=== PATIENT | male | born 1950 | race Caucasian/White ===

== ENCOUNTER 2020-03-30 21:45 | Inpatient (IN) | payer MEDICARE, SELFPAY ==
[2020-03-30 21:57] VITALS: BP 115/81; BP 125/60; PULSE 62; PULSE 76; RESP 18; TEMP 36.3; O2SAT 100; O2SAT 99; BMI 29.1
[2020-03-30 22:09] VITALS: BP 125/60; PULSE 62; RESP 16; TEMP 37.1; O2SAT 100
--- NOTE | 2020-03-30 22:13 | XR_ITS ---
EXAMINATION: XR CHEST CLINICAL INFORMATION: Shortness of breath COMPARISON: None TECHNIQUE: Frontal view of the chest was obtained. FINDINGS: No significant abnormality is noted involving the heart, lungs, mediastinum, bony thorax or soft tissues. XR/XR chest 1V IMPRESSION: Unremarkable examination.
--- NOTE | 2020-03-30 22:17 | ED.SOB ---
HPI - SOB/Dyspnea General Chief Complaint: Dyspnea Stated Complaint: sob Time Seen by Provider: 03/30/20 22:11 Source: patient and EMS Mode of arrival: EMS Limitations: no limitations History of Present Illness HPI Narrative: 70 y/o male presenting with SOB on POD #5 after having his left hip replaced at [facility]. 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 He reports he was later found to have a clot at the insertion site. He is not on anticoagulation. He was on anticoagulation for 30 days and then the IVC filter was placed. He reports since his surgery last week he has been very SOB with little exertion. He denies dizziness or chest pain. He denies fever, chills, cough, N/V/D. He admits to generalized weakness and fatigue. Prior to the surgery patient was an swimming and biking several times per week and had no SOB issues. Postoperatively he had urinary retention and now has a Chung in place. He was discharged with SQ PPX lovenox as well as Coumadin that started on 03/29 - he took 3 mg yesterday. INR per visiting nurse at home was 1.0 so he was instructed to take 4 mg today and tomorrow. MD elicited complaint: shortness of breath Pertinent past history: DVT Onset (ago): day(s) (3) Context: other (recent hip replacement) Timing: intermittent Severity: moderate Exacerbating factors: exertion and movement Relieving factors: rest Known history of: DVT Treatment prior to arrival: none Related Data Home oxygen amount: none Allergies Allergy/AdvReac Type Severity Reaction Status Date / Time Unable to Assess Allergy Unverified 03/30/20 22:12 Review of Systems Review of Systems: Constitutional: No Fever, No Chills ENT/Mouth: No sore throat, No Rhinorrhea, No Swallowing Difficulty Cardiovascular: No Chest Pain, + SOB, No Orthopnea, + Edema Respiratory: No Cough, No Sputum, No Wheezing, + dyspnea Gastrointestinal: No Nausea, No Vomiting, No Diarrhea, No abdominal Pain Genitourinary: No Dysuria, No Urinary Frequency, No Hematuria, +retention Musculoskeletal: No joint pain, No Myalgias Skin: No Skin Lesions, No rash Neuro: + Weakness, No Numbness, No Dizziness, No Headache Psych: + Anxiety/Panic, No Depression Heme/Lymph: + Bruising, No Lymphadenopathy Endocrine: No Polyuria, No Polydipsia PMFSH Past Medical History Medical History (Updated 03/31/20 @ 00:50 by LISSY Meade) Aortic aneurysm Blood clot in vein High cholesterol Hypertension Presence of IVC filter Surgical History (Updated 03/30/20 @ 22:01 by Cecelia Carranza) History of hip surgery Social History Social History Alcohol intake: never Smoking Status: Never smoker Use of substances other than those prescribed or required for medical reasons: No Advance Directives: No Advance Directives Information Provided: Yes Physical Exam Vital Signs: Vital Signs: Last Vital Signs Temp 98.8 F 03/30/20 22:09 Pulse 62 03/30/20 22:09 Resp 16 03/30/20 22:09 BP 125/60 03/30/20 22:09 Pulse Ox 100 03/30/20 22:09 Body Mass Index 29.1 Appearance: Alert. Oriented X3. No acute distress. Eyes: Pupils equal, round and reactive to light. ENT: Pharynx normal. Neck: Normal inspection. Neck supple. CVS: Normal heart rate and rhythm. Pulses normal. Respiratory: No respiratory distress. Mild end expiratory wheeze in RLL. No distress. Abdomen: Soft and nontender. +BS x4 Skin: Skin warm and dry. Normal skin color. Normal skin turgor. No rashes. Extremities: Left hip post surgical scar is healing well without surrouding erythema. No calf tenderness. No distal LE edema. Neuro: Oriented X 3. Non-focal Course Course Course Narrative: 70 y/o male with hx DVT s/p IVC filter presenting with SOB, PIERRE and fatigue POD #5 from hip replacement. Concern for PE, still possible after IVC filter placement. Will get labs and plan for CTA. Reevaluation(s) Reevaluation #1: Troponin mildly elevated at 10, no chest pain or ischemic changes on EKG. BNP normal. Will trend in 3 hours. Reevaluation #2: Received critical result from [facility] at 12:20 am - patient has acute PE's in left lung. Results were discussed with the patient. Hospitalist paged for admission. Reevaluation #3: Spoke with hospitalist who will admit. Heparin has been initiated. MDM - SOB/Dyspnea Medical Records Attestation: I reviewed the patient's medical records. Lab Data Attestation: I reviewed the patient's lab results. Result diagrams: 03/30/20 22:42 03/30/20 22:42 Labs: Lab Results 03/30/20 03/30/20 03/30/20 Range/Units 22:31 22:33 22:42 WBC 7.0 (4.8-10.8) X10*3/uL RBC 3.24 L (4.60-5.80) X10*6/uL Hgb 10.2 L (14.0-18.0) g/dl Hct 30.3 L (42-52) % MCV 93.5 (80-98) fL MCH 31.5 (27.0-33.0) pg MCHC 33.7 (31.0-36.0) g/dl RDW 12.9 (11.0-16.0) % Plt Count 194 (160-400) X10*3/uL MPV 9.3 L (9.4-12.4) fL Immature Gran % (Auto) 0.3 (0.0-0.4) % Neut % (Auto) 55.4 (45-73) % Lymph % (Auto) 27.5 (20-40) % [place] % (Auto) 10.5 (2-11) % Eos % (Auto) 6.0 H (0-4) % Baso % (Auto) 0.3 (0-2) % Lymph # (Auto) 1.9 (1.2-4.9) X10*3/uL [place] # (Auto) 0.7 (0.1-1.2) X10*3/uL Eos # (Auto) 0.4 (0.0-0.4) X10*3/uL Baso # (Auto) 0.0 (0.0-0.2) X10*3/uL Abs Immat Gran (auto) 0.02 (0.00-0.03) X10*3/uL Absolute Neuts (auto) 3.9 (2.0-8.3) X10*3/uL Absolute Nucleated RBC 0.000 (0.0-0.012) X10*3/uL Nucleated RBC % (auto) 0.0 (0.0-0.2) /100WBC PT (10.8-13.0) SEC INR (0.9-1.1) APTT (24.1-38.0) SEC D-Dimer NG/ML Sodium (135-145) mmol/L Potassium (3.3-5.1) mmol/L Chloride (96-108) mmol/L Carbon Dioxide (22-29) mmol/L Anion Gap (12-20) BUN (9-16) mg/dL Creatinine (0.5-1.4) mg/dL Estim Creat Clear Calc Estimated GFR Random Glucose (60-115) mg/dL Calcium (8.4-10.2) mg/dL Magnesium (1.6-2.6) mg/dL Total Bilirubin (0.0-1.0) mg/dL Direct Bilirubin (0.0-0.5) mg/dL AST (5-37) U/L ALT (0-40) U/L Alkaline Phosphatase (39-117) U/L Troponin I High Sens (<3.5-35.0) ng/L B-Natriuretic Peptide (<100) pg/mL Total Protein (6.5-8.0) g/dL Albumin (3.5-5.0) g/dL Urine Color YELLOW Urine Appearance CLEAR Urine pH 6.5 (5.0-8.0) Ur Specific [place] <= 1.005 (1.005-1.025) Urine Protein NEG (NEG-TRACE) MG/DL Urine Glucose (UA) NEG (NEG) MG/DL Urine Ketones NEG (NEG) MG/DL Urine Blood 3+ H (NEG) Urine Nitrite NEG (NEG) Ur Leukocyte Esterase TRACE H (NEG) Urine RBC 5-9 H (0) /HPF Urine WBC 0-2 (0-4) /HPF Ur Squamous Epith Cells 1+ /LPF Urine Bacteria 1+ /LPF Coronavirus (PCR) NEGATIVE (Negative) Influenza Type A (PCR) NEGATIVE (Negative) Influenza Type B (PCR) NEGATIVE (Negative) RSV RNA Qual (PCR) NEGATIVE (Negative) 03/30/20 03/30/20 03/30/20 Range/Units 22:42 22:42 22:42 WBC (4.8-10.8) X10*3/uL RBC (4.60-5.80) X10*6/uL Hgb (14.0-18.0) g/dl Hct (42-52) % MCV (80-98) fL MCH (27.0-33.0) pg MCHC (31.0-36.0) g/dl RDW (11.0-16.0) % Plt Count (160-400) X10*3/uL MPV (9.4-12.4) fL Immature Gran % (Auto) (0.0-0.4) % Neut % (Auto) (45-73) % Lymph % (Auto) (20-40) % [place] % (Auto) (2-11) % Eos % (Auto) (0-4) % Baso % (Auto) (0-2) % Lymph # (Auto) (1.2-4.9) X10*3/uL [place] # (Auto) (0.1-1.2) X10*3/uL Eos # (Auto) (0.0-0.4) X10*3/uL Baso # (Auto) (0.0-0.2) X10*3/uL Abs Immat Gran (auto) (0.00-0.03) X10*3/uL Absolute Neuts (auto) (2.0-8.3) X10*3/uL Absolute Nucleated RBC (0.0-0.012) X10*3/uL Nucleated RBC % (auto) (0.0-0.2) /100WBC PT 12.6 (10.8-13.0) SEC INR 1.1 (0.9-1.1) APTT 30.5 (24.1-38.0) SEC D-Dimer 955 NG/ML Sodium 137 (135-145) mmol/L Potassium 4.0 (3.3-5.1) mmol/L Chloride 103 (96-108) mmol/L Carbon Dioxide 27 (22-29) mmol/L Anion Gap 11 L (12-20) BUN 18 H (9-16) mg/dL Creatinine 0.83 (0.5-1.4) mg/dL Estim Creat Clear Calc 125.5 Estimated GFR > 60 Random Glucose 102 (60-115) mg/dL Calcium 8.0 L (8.4-10.2) mg/dL Magnesium 2.1 (1.6-2.6) mg/dL Total Bilirubin 1.0 (0.0-1.0) mg/dL Direct Bilirubin 0.4 (0.0-0.5) mg/dL AST 21 (5-37) U/L ALT 10 (0-40) U/L Alkaline Phosphatase 48 (39-117) U/L Troponin I High Sens 10.5 (<3.5-35.0) ng/L B-Natriuretic Peptide 24 (<100) pg/mL Total Protein 6.4 L (6.5-8.0) g/dL Albumin 3.6 (3.5-5.0) g/dL Urine Color Urine Appearance Urine pH (5.0-8.0) Ur Specific [place] (1.005-1.025) Urine Protein (NEG-TRACE) MG/DL Urine Glucose (UA) (NEG) MG/DL Urine Ketones (NEG) MG/DL Urine Blood (NEG) Urine Nitrite (NEG) Ur Leukocyte Esterase (NEG) Urine RBC (0) /HPF Urine WBC (0-4) /HPF Ur Squamous Epith Cells /LPF Urine Bacteria /LPF Coronavirus (PCR) (Negative) Influenza Type A (PCR) (Negative) Influenza Type B (PCR) (Negative) RSV RNA Qual (PCR) (Negative) ECG Data Attestation: I personally reviewed and interpreted this ECG as follows: ECG interpretation date: 03/31/20 ECG interpretation time: 00:48 Interpretation: normal sinus rhythm, HR 61 bpm, normal NM interval, normal QTc, no ST segment depressions or elevations. Scores [place] PE Other diagnosis less likely than PE: 3 Immobilization or surgery within 4 weeks: 1.5 Previous DVT or PE: 1.5 Score: 6.0 2-tier Risk: likely risk (17-53%) 3-tier Risk: high risk (78.4%) Discharge Plan Discharge Clinical Impression: Pulmonary embolism Qualifiers: Pulmonary embolism type: multiple subsegmental (without acute cor pulmonale) Qualified Code(s): I26.94 - Multiple subsegmental pulmonary emboli without acute cor pulmonale Patient Disposition: Admitted As Inpatient
--- NOTE | 2020-03-30 22:38 | CT_ITS ---
EXAMINATION: CT PULMONARY EMBOLISM STUDY CLINICAL INFORMATION: Shortness of breath. History of DVT. COMPARISON: Same day chest radiograph. TECHNIQUE: Contiguous helical images of the chest were obtained following the administration of IV contrast. Multiplanar reconstructions were performed. MIPS were obtained and reviewed. DLP: 434 mGy-cm. CONTRAST: 65 mL of Omnipaque 350 were administered without incident. FINDINGS: The heart is of normal size. There is no pericardial effusion. There are filling defects present within branches of the left pulmonary artery, specifically supplying the left upper lobe and lingula. There are no chest wall masses. Review of lung windows demonstrates that there are neither pleural effusions nor pneumothoraces. There are no consolidations. There is mild dependent bibasilar atelectasis. There are no pulmonary parenchymal nodules. Limited evaluation of the upper abdomen demonstrates that the liver is of normal size and attenuation without focal lesions. Normal adrenal glands are identified. CT/CT angio chest PE protocol IMPRESSION: Emboli within branches of the left pulmonary artery. The aforementioned was communicated to Dr. Jefferson at 0022 hours. Automated exposure control (Care Dose) Adjustment of the mA and/or kv according to patient size (this includes techniques or standardized protocols for targeted exams where dose is matched to indication / reason for exam; i.e. extremities or head).
[2020-03-30 22:51] LABS: Glucose Urine UA NEG (NEG); Leukocyte Esterase Urine TRACE (NEG); Nitrite Urine NEG (NEG); PH 6.5 (5.0-8.0); Specific Gravity - Urine <= 1.005 (1.005-1.025); UACC Culture Trigger YES; Urine Blood 3+ (NEG); Urine Ketones NEG (NEG); Urine Protein NEG (NEG-TRACE)
[2020-03-30 22:51] LABS: Basophils Percent Auto 0.3 % (0-2); Eosinophils Absolute Auto 0.4 X10*3/uL (0.0-0.4); Hematocrit 30.3 % (42-52); Hemoglobin 10.2 g/dl (14.0-18.0); Imm Gran Abs Auto 0.02 X10*3/uL (0.00-0.03); Imm Gran Pct Auto 0.3 % (0.0-0.4); Lymphocytes Absolute Auto 1.9 X10*3/uL (1.2-4.9); Lymphocytes Percent Auto 27.5 % (20-40); MANUAL DIFF FLAG NO; Mean Corpuscular HGB Conc 33.7 g/dl (31.0-36.0); Mean Corpuscular Hemoglobin 31.5 pg (27.0-33.0); Mean Corpuscular Volume 93.5 fL (80-98); Mean Platelet Volume 9.3 fL (9.4-12.4); Monocytes Absolute Auto 0.7 X10*3/uL (0.1-1.2); Monocytes Percent Auto 10.5 % (2-11); Neutrophils Absolute Auto 3.9 X10*3/uL (2.0-8.3); Neutrophils Percent Auto 55.4 % (45-73); Platelet Count 194 X10*3/uL (160-400); Red Blood Count 3.24 X10*6/uL (4.60-5.80); Red Cell Distribution Width 12.9 % (11.0-16.0)
[2020-03-30 22:52] LABS: Appearance Urine CLEAR; Color Urine YELLOW
[2020-03-30 22:57] LABS: INTERNATIONAL NORM RATIO 1.1 (0.9-1.1); Prothrombin Time 12.6 SEC (10.8-13.0)
[2020-03-30 22:57] LABS: Bacteria Urine 1+ /LPF; Squamous Epithelial Cell Urine 1+ /LPF; WBC Urine 0-2 /HPF (0-4)
[2020-03-30 23:00] LABS: D Dimer 955 NG/ML; Partial Thromboplastin Time 30.5 SEC (24.1-38.0)
[2020-03-30 23:15] LABS: Alanine Aminotransferase 10 U/L (0-40); Albumin Level 3.6 g/dL (3.5-5.0); Alkaline Phosphatase 48 U/L (39-117); Anion Gap 11 (12-20); Aspartate Amino Transferase 21 U/L (5-37); Bilirubin Direct 0.4 mg/dL (0.0-0.5); Blood Urea Nitrogen 18 mg/dL (9-16); Carbon Dioxide 27 mmol/L (22-29); Chloride 103 mmol/L (96-108); Creatinine Clr Calc Pharmacy 125.5; Estimated Glomerular Filt Rate > 60; Glucose Random 102 mg/dL (60-115); Magnesium 2.1 mg/dL (1.6-2.6); Sodium 137 mmol/L (135-145); Total Protein 6.4 g/dL (6.5-8.0)
[2020-03-30 23:19] LABS: B Type Natriuretic Peptide 24 pg/mL (<100); Troponin-I High Sensitivity 10.5 ng/L (<3.5-35.0)
[2020-03-30 23:35] LABS: Influenza A PCR NEGATIVE (Negative); Influenza B PCR NEGATIVE (Negative); Resp Syncy Virus RNA Qual PCR NEGATIVE (Negative); SARS COV2 PCR INHOUSE NEGATIVE (Negative)
[2020-03-31] VITALS (7 sets, daily range): BP systolic 105–117; BP diastolic 47–68; PULSE 60–75; RESP 12–18; TEMP 36.8–37.6; O2SAT 97–100
--- NOTE | 2020-03-31 | US_ITS ---
EXAMINATION: US VENOUS WITH DOPPLER LOWER EXTREMITY, BILATERAL CLINICAL INFORMATION: Pulmonary embolism. COMPARISON: None TECHNIQUE: Ultrasound of the deep veins is performed from the hip to the calf with compression sonography and color and pulse Doppler assessment. Spectral analysis with color-flow imaging is performed. FINDINGS: RIGHT: There is normal venous compression and respiratory variation and augmented flow. The visualized common femoral vein, superficial femoral vein, profunda femoral vein, popliteal vein, and the trifurcation region shows no evidence of deep venous thrombosis. There is no significant popliteal fossa cyst. LEFT: There is thrombosis seen at the junction of the common femoral vein and greater saphenous vein. More distally, the femoral vein, popliteal vein, calf veins appear patent. No significant Garzon's cyst. US/US venous duplex LE BI IMPRESSION: 1. In the left lower extremity, there is thrombosis seen at the junction of the common femoral vein and the greater saphenous vein. The more distal vessels in the left lower extremity are patent. 2. No evidence of right lower extremity deep vein thrombosis. This critical result was discussed with Dr. Curiel at 1940 hours on 03/31/2020 and it was ascertained that the content and urgency of the report was understood at the time of direct communication.
[2020-03-31] MEDS: iohexoL 350 MG/ML 100 ML INFUS..BTL 65 ML IV (00:02)
--- NOTE | 2020-03-31 00:31 | ECG_ITS ---
Test Reason : SOB Blood Pressure : / mmHG Vent. Rate : 061 BPM Atrial Rate : 061 BPM P-R Int : 182 ms QRS Dur : 114 ms QT Int : 428 ms P-R-T Axes : 077 031 050 degrees QTc Int : 430 ms Normal sinus rhythm Normal ECG No previous ECGs available Referred By: Erica Jefferson Electronically Signed By:BRANDON ELLISON MD
--- NOTE | 2020-03-31 01:08 | P.HPHOSP_ITS ---
History of Present Illness Date of Service: 03/31/20 Chief Complaint: Shortness of breath 70-year-old male with a past medical history of hypertension, hyperlipidemia, history of DVT in October of 2019 in finished 1 month course of anticoagulation with Coumadin and had subsequent IVC filter placed.; recent history of a left hip replacement about 5 days ago at [facility]- discharged on Lovenox prophylaxis and 2 days ago started on Coumadin; also had urinary retention postoperatively and had Chung catheter in place; presented to the hospital today with a chief complaint of shortness of breath/dyspnea on exertion going on over the past couple days. Denies any chest pain palpitations lightheadedness dizziness. Denies any fevers chills cough. Review of all other systems is negative except mentioned above ER course: Per ER physician patient exam was benign CT scan showed left left- sided pulmonary embolism. Troponin of 10. Vital stable. Started on heparin drip. Admitted to the hospital for further management. [facility] Medical History (Updated 03/31/20 @ 00:50 by LISSY Meade) Aortic aneurysm Blood clot in vein High cholesterol Hypertension Presence of IVC filter Surgical History (Updated 03/30/20 @ 22:01 by Cecelia Carranza) History of hip surgery Social History Alcohol intake: never Smoking Status: Never smoker Use of substances other than those prescribed or required for medical reasons: No Advance Directives: No Advance Directives Information Provided: Yes Meds Allergies Allergy/AdvReac Type Severity Reaction Status Date / Time Unable to Assess Allergy Unverified 03/30/20 22:12 Physical Exam Vital Signs and Narrative: Vital Signs: Last Vital Signs Temp 98.8 F 03/30/20 22:09 Pulse 62 03/30/20 22:09 Resp 16 03/30/20 22:09 BP 125/60 03/30/20 22:09 Pulse Ox 100 03/30/20 22:09 Body Mass Index 29.1 Gen: Appears be in no acute distress HEENT: NCAT, Moist mucosa. Pulmonary: Vesicular breath sounds, fair air entry CVS: Normal S1-S2 Abdomen: BS+, Soft, Nontender Extremities: Warm well perfused Neuro: Alert and awake. Results Labs CBC and Chem 7: 03/30/20 22:42 03/30/20 22:42 Labs: Laboratory Results - last 24 hr 03/30/20 03/30/20 03/30/20 22:31 22:33 22:42 MCV 93.5 MCH 31.5 MCHC 33.7 RDW 12.9 Plt Count 194 MPV 9.3 L Immature Gran % (Auto) 0.3 Neut % (Auto) 55.4 Lymph % (Auto) 27.5 [place] % (Auto) 10.5 Eos % (Auto) 6.0 H Baso % (Auto) 0.3 Lymph # (Auto) 1.9 [place] # (Auto) 0.7 Eos # (Auto) 0.4 Baso # (Auto) 0.0 Abs Immat Gran (auto) 0.02 Absolute Neuts (auto) 3.9 Absolute Nucleated RBC 0.000 Nucleated RBC % (auto) 0.0 PT INR APTT D-Dimer Anion Gap Estim Creat Clear Calc Estimated GFR Random Glucose Calcium Magnesium Total Bilirubin Direct Bilirubin AST ALT Alkaline Phosphatase Troponin I High Sens B-Natriuretic Peptide Total Protein Albumin Urine Color YELLOW Urine Appearance CLEAR Urine pH 6.5 Ur Specific [place] <= 1.005 Urine Protein NEG Urine Glucose (UA) NEG Urine Ketones NEG Urine Blood 3+ H Urine Nitrite NEG Ur Leukocyte Esterase TRACE H Urine RBC 5-9 H Urine WBC 0-2 Ur Squamous Epith Cells 1+ Urine Bacteria 1+ Coronavirus (PCR) NEGATIVE Influenza Type A (PCR) NEGATIVE Influenza Type B (PCR) NEGATIVE RSV RNA Qual (PCR) NEGATIVE 03/30/20 03/30/20 03/30/20 22:42 22:42 22:42 MCV MCH MCHC RDW Plt Count MPV Immature Gran % (Auto) Neut % (Auto) Lymph % (Auto) [place] % (Auto) Eos % (Auto) Baso % (Auto) Lymph # (Auto) [place] # (Auto) Eos # (Auto) Baso # (Auto) Abs Immat Gran (auto) Absolute Neuts (auto) Absolute Nucleated RBC Nucleated RBC % (auto) PT 12.6 INR 1.1 APTT 30.5 D-Dimer 955 Anion Gap 11 L Estim Creat Clear Calc 125.5 Estimated GFR > 60 Random Glucose 102 Calcium 8.0 L Magnesium 2.1 Total Bilirubin 1.0 Direct Bilirubin 0.4 AST 21 ALT 10 Alkaline Phosphatase 48 Troponin I High Sens 10.5 B-Natriuretic Peptide 24 Total Protein 6.4 L Albumin 3.6 Urine Color Urine Appearance Urine pH Ur Specific [place] Urine Protein Urine Glucose (UA) Urine Ketones Urine Blood Urine Nitrite Ur Leukocyte Esterase Urine RBC Urine WBC Ur Squamous Epith Cells Urine Bacteria Coronavirus (PCR) Influenza Type A (PCR) Influenza Type B (PCR) RSV RNA Qual (PCR) Imaging Radiologist's Impressions: Impressions Chest X-Ray 03/30/20 22:13 IMPRESSION: Unremarkable examination. Chest CTA 03/30/20 22:38 IMPRESSION: Emboli within branches of the left pulmonary artery. The aforementioned was communicated to Dr. Jefferson at 0022 hours. Automated exposure control (Care Dose) Adjustment of the mA and/or kv according to patient size (this includes techniques or standardized protocols for targeted exams where dose is matched to indication / reason for exam; i.e. extremities or head). Assessment and Plan (1) Pulmonary embolism: Qualifiers: Pulmonary embolism type: multiple subsegmental (without acute cor pulmonale) Qualified Code(s): I26.94 - Multiple subsegmental pulmonary emboli without acute cor pulmonale Status: Acute 70-year-old male with a past medical history of hypertension, h yperlipidemia, history of DVT was briefly on anticoagulation status post IVC filter, recent history of hip replacement presented to the hospital with a chief complaint of shortness of breath/dyspnea on exertion. Noted to have pulmonary embolism. Admitted to the hospital for further management Acute pulmonary embolism: CT scan showed left-sided PE.No right heart strain on CT as per radiologist Patient's vitals are stable. Troponin 10. Pending repeat troponin Continue heparin drip Will obtain echocardiogram to rule out any right heart strain. Patient has history of DVT status post IVC filter placement in 2020. Recent history of hip replacement: Surgical site appears fine, less concern for any infection. History of urinary retention-> developed postoperatively: Patient has Chung catheter. Denies any urinary symptoms. Urinalysis slightly abnormal. Follow urine cultures. Will hold of antibiotics for now. Hypertension/hyperlipidemia: Continue home medications. Code status: Full code
[2020-03-31 02:30] LABS: Troponin-I High Sensitivity 12.1 ng/L (<3.5-35.0)
[2020-03-31] MEDS: Heparin Sodium,Porcine 5,000 UNIT/ML VIAL 4800 UNIT IVPUSH ×2 (02:43→10:11)
[2020-03-31] MEDS: Heparin Sodium,Porcine/1/2NS 25,000 UNIT/250 ML IV.SOLN 16.83 UNIT IVCONT (02:43)
--- NOTE | 2020-03-31 07:44 | PC.NURSE ---
REPORT FROM [facility]. PT EATING BREAKFAST. 2000 CC FROM [facility]. INR PENDING FOR 0900
--- NOTE | 2020-03-31 09:10 | PC.NURSE ---
0900 LABS DRAWN. VITALS UPDATED. PT OFFERS NO COMPLAINTS. ATE FULL BREAKFAST
[2020-03-31] MEDS: Valsartan 80 MG TABLET PO (09:16)
[2020-03-31] MEDS: 0.9 % Sodium Chloride Flush 3 ML SYRINGE IVFLUSH (09:17)
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
--- NOTE | 2020-03-31 11:14 | CA_ITS ---
Transthoracic Echocardiogram Patient (Last, First, Middle): Hong Cartagena A Gender: Male Date of : 1950 Age: 70 Procedure Date: 03/31/2020 Procedure Type: Transthoracic Echocardiogram Location: ER Height: 203.2 cm Weight: 120.2 kg BSA: 2.59 m2 Heart Rate: bpm BP: 105 / 51 mmHg Clinical Fellow: Referring MD: Avila Lim MD Matrix Supervisor: Avila Lim MD Symptoms: Pulmonary embolism Study Quality: Fair ECG Rhythm: Sinus with extra beats Conclusions: - 1. Technically limited study despite using definity contrast 2. Normal LV systolic function with mild LVH 3. Mildly dilated left atrium 4. Normal cardiac valvular Doppler 5. Normal RV systolic pressure 6. No pericardial effusion Findings Procedure Information Contrast agent, definity, is being given per protocol without apparent complications. Left Ventricle Normal left ventricular size and systolic function. There is mildly increased left ventricular wall thickness. The visually estimated ejection fraction is between 60-65%. There is no evidence of regional wall motion abnormalities. Diastolic function is indeterminate on the basis of available data. Right Ventricle Normal right ventricular cavity size. There is normal right ventricular systolic function. Atria The left atrium is mildly dilated. Interatrial shunt cannot be excluded. The right atrium was not well visualized. Aortic Valve The aortic valve was not well visualized. There is no aortic valve stenosis. There is no aortic valve regurgitation. Mitral Valve The mitral valve was not well visualized. There is moderate mitral annular calcification. There is no mitral valve regurgitation. There is no mitral valve stenosis. Pulmonic Valve The pulmonic valve was not well visualized. Tricuspid Valve The tricuspid valve was not well visualized. There is trace tricuspid valve regurgitation. The right ventricular systolic pressure is normal. The right ventricular systolic pressure is 23 mmHg. Mildly elevated right atrial pressure. There is no evidence of pulmonary hypertension. Great Vessels All visible segments of the aorta are normal in size. The pulmonary artery was not well visualized. Venous The inferior vena cava is mildly dilated and collapses greater than 50% with inspiration. Pericardium/Pleural The pericardium was not well visualized. Prior Study Comparison No prior study available for comparison. Measurements 2D Linear Measurements IVSd: 1.26 0.6-0.9/0.6-1.0 cm LVIDd: 4.13 3.9-5.3/4.2-5.9 cm LVIDd Index: 1.59 2.4-3.2/2.2-3.1 cm/m2 LVIDs: 3.01 2.0-3.6 cm LVPWd: 1.28 0.7-1.1 cm Ao Root: 4.30 2.1-3.5 cm LA Diam: 3.80 2.7-3.8/3.0-4.0 cm LAIDs Index: 1.47 1.5-2.3 cm/m2 LV Mass: 235.35 67-162/88-224 g LV Mass Index: 90.87 43-95/49-115 g/m2 LVOT Diam: 2.20 3.0+(-)1.3 cm Mitral Valve MV Pk E: 0.90 MV PK A: 0.62 MV Decel Time: 227.00 E/A: 1.50 E'Lateral: 14.90 E'Medial: 10.40 E/E' Med: 8.70 E/E' Lat: 6.10 PHT: 66.00 MVA PHT: 3.33 Decel Spink: 3.98 Aortic Valve AoV Pk Ronnie: 1.52 AoV Mn Ronnie: 1.05 AoV VTI: 0.35 AoV Pk Grad: 9.00 Aov Mn Grad: 5.00 IAIN Cont.VTI: 2.49 LVOT LVOT Pk Ronnie: 0.92 LVOT Mn Ronnie: 0.59 LVOT VTI: 0.23 LVOT Pk Grad: 3.00 LVOT Mn Grad: 2.00 LVOT Diam: 2.20 LVOT Area: 3.80 Diastolic Function MV Pk E: 0.90 MV Pk A: 0.62 E/A: 1.50 E'Medial: 10.40 E/E' Med: 8.70 E' Laterial: 14.90 E/E' Lat: 6.10 Tricuspid Valve TR Pk Ronnie: 1.91 TR Pk Grad: 15.00 RA Press: 8.00 RVSP: 23.00 Great Vessels Aorta Ao Root-2D: 4.30 2.0-3.7 cm Pulmonary Valve PV Pk Ronnie: 1.14 Peak PV Grad: 5.00 Updated in Other Vendor System with Status of Final Avila Lim MD electronically signed on 03/31/2020 4:35:25 PM with status of Final
--- NOTE | 2020-03-31 14:58 | PM.HEMONCCN ---
Subjective - Subjective Chief complaint: Shortness of breath Consult date: 03/31/20 Primary Care Provider: Emerson Wasserman MD HPI - Consult Narrative Reason for consult: Pulmonary embolism Narrative: Hong Cartagena is a 70 year old male who presented with shortness of breath on 03/31/2020. He underwent CT angiogram which revealed emboli within branches of left pulmonary artery. Patient was initially diagnosed with left lower extremity DVT in October 2019. He had undergone right hip replacement in August 2019 and was scheduled for left hip replacement in October. He did not receive any prophylactic anticoagulation after surgery in August and therefore he had screening Doppler of both lower extremities and was diagnosed with left DVT. He was started given Eliquis for 1 month only. He was supposed to get an IVC filter and that was delayed until March 18. He was without anticoagulation all of December, January and part of February. He underwent left hip replacement on 03/27/2020 and was started on warfarin. His INR was 1 2 days ago and his dose was increased from 3 mg to 4 mg. He reports left leg swelling since the surgery. 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 He denies any prior history of thrombosis, no family history of thromboembolism. He is up-to-date with screening colonoscopy. He was a smoker, he recently quit. Review of Systems - Constitutional Reports as per HPI, Reports no additional constitutional complaints - Cardiovascular Denies chest pain at rest, Denies chest pain with activity, Denies irregular heart rhythm - Respiratory Denies chest congestion, Denies cough, Denies hemoptysis, Reports dyspnea, Reports dyspnea on exertion - Gastrointestinal Reports no additional gastrointestinal complaints - Genitourinary Genitourinary: Reports difficulty urinating Oncology Screenings - ECOG Performance Status ECOG Performance Status: 1 [facility] Medical History: Medical History (Last Reviewed 03/31/20 @ 11:20 by Avila Lim MD) Aortic aneurysm Blood clot in vein High cholesterol Hypertension Presence of IVC filter Surgical History: Surgical History (Last Reviewed 03/31/20 @ 11:20 by Avila Lim MD) History of hip surgery Social History: Social History (Last Reviewed 03/31/20 @ 11:20 by Avila Lim MD) Alcohol History: Alcohol intake: never Tobacco History: Smoking Status: Never smoker Substance Use History: Use of substances other than those prescribed or required for medical reasons: No Advance Directives: Advance Directives: No Advance Directives Information Provided: Yes Smoking status: Never smoker Home Medications and Allergies Current Medications: Current Medications Generic Name Dose Route Start Last Admin Trade Name Freq PRN Reason Stop Dose Admin Acetaminophen 650 mg 03/31/20 01:14 Acetaminophen Supp 650 Mg Supp.Rect CA Q6H PRN Pain, Mild (Pain Scale 1-3) Atorvastatin Calcium 10 mg 03/31/20 21:00 Atorvastatin Calcium 10 Mg Tablet PO BEDTIME [facility] Heparin Sodium (Porcine) 4,800 unit 03/31/20 00:39 03/31/20 10:11 Heparin Sodium,Porcine 5,000 Unit/Ml Vial 40 unit/kg (4800 unit) 4,800 unit IVPUSH Administration BOLUS PRN 40 unit/kg - Heparin Protocol Heparin Sodium/Sodium Chloride 25,000 unit in 250 mls @ 0 mls/hr 03/31/20 00:45 03/31/20 10:11 IVCONT 16 units/kg/hr .Q0M [facility] 19.23 mls/hr Titration Protocol Per Protocol Magnesium Hydroxide 30 ml 03/31/20 01:14 Milk Of Magnesia 30 Ml Oral.Susp PO DAILY PRN Constipation Sodium Chloride 3 ml 03/31/20 08:00 03/31/20 09:17 0.9 % Sodium Chloride Flush 3 Ml Syringe IVFLUSH 3 ml QSHIFT [facility] Administration Tamsulosin HCl 0.4 mg 03/31/20 17:30 Tamsulosin Hcl 0.4 Mg Capsule PO DAILY@1730 [facility] Trazodone HCl 50 mg 03/31/20 21:00 Trazodone Hcl 50 Mg Tablet PO BEDTIME [facility] Valsartan 80 mg 03/31/20 09:00 03/31/20 09:16 Valsartan 80 Mg Tablet PO 80 mg DAILY [facility] Administration Home Medications Medication Instructions Recorded Confirmed Type celecoxib 1 cap PO DAILY 03/31/20 03/31/20 History enoxaparin 40 mg SUBCUT 03/31/20 History hydromorphone PO PRN 03/31/20 History olmesartan 1 tab PO DAILY 03/31/20 03/31/20 History simvastatin 1 tab PO DAILY 03/31/20 03/31/20 History tamsulosin 1 cap PO DAILY 03/31/20 03/31/20 History tramadol 1 tab PO DAILY 03/31/20 03/31/20 History trazodone 1 tab PO BEDTIME 03/31/20 03/31/20 History warfarin PO 03/31/20 History Allergies Allergy/AdvReac Type Severity Reaction Status Date / Time Unable to Assess Allergy Unverified 03/30/20 22:12 Physical Exam Vital signs: Vital Signs Temp 98.8 F 03/30/20 22:09 Pulse 60 03/31/20 09:16 Resp 12 03/31/20 05:17 BP 105/51 L 03/31/20 09:16 Pulse Ox 98 03/31/20 09:09 Intake & Output 03/30/20 03/31/20 03/31/20 18:59 06:59 18:59 Intake Total 125.664 / 125.664 Output Total 1999 Balance -1874.336 / -1874.336 Urine Output (Average ml/kg/hr) 1.39 Intake: Intake, IV Amount 125.664 / 125.664 Heparin Sodium,Porcine/1/2NS 25 125.664 / 125.664 ,000 unit In 250 ml @ Per Protocol IVCONT .Q0M [facility] Rx#: [id number] Output: Output, Urine Amount 1999 Other: Weight 120.202 kg Weight 120.202 kg - Constitutional Present: no acute distress - Routine HEENT Exam Head: Present: normal inspection Eye: Present: EOMI - Routine Neck Exam Present: supple. Absent: lymphadenopathy - Routine Respiratory Exam Absent: respiratory distress - Routine Cardiovascular Exam Cardiovascular: Present: S1, S2 - Routine Extremities Exam Present: pedal edema Hem/Onc Consult Result - Labs CBC & Chem 7: 03/30/20 22:42 03/30/20 22:42 Labs: Short CBC 03/30/20 Range/Units 22:42 WBC 7.0 (4.8-10.8) X10*3/uL Hgb 10.2 L (14.0-18.0) g/dl Hct 30.3 L (42-52) % Plt Count 194 (160-400) X10*3/uL BMP 03/30/20 22:42 Sodium 137 Potassium 4.0 Chloride 103 Carbon Dioxide 27 BUN 18 H Creatinine 0.83 Calcium 8.0 L Liver Function 03/30/20 Range/Units 22:42 Total Bilirubin 1.0 (0.0-1.0) mg/dL Direct Bilirubin 0.4 (0.0-0.5) mg/dL AST 21 (5-37) U/L ALT 10 (0-40) U/L Alkaline Phosphatase 48 (39-117) U/L Albumin 3.6 (3.5-5.0) g/dL Urine 03/30/20 Range/Units 22:31 Urine Color YELLOW Urine Appearance CLEAR Urine pH 6.5 (5.0-8.0) Ur Specific [place] <= 1.005 (1.005-1.025) Urine Protein NEG (NEG-TRACE) MG/DL Urine Glucose (UA) NEG (NEG) MG/DL Assessment and Plan (1) Pulmonary embolism Status: Acute Qualifiers: Pulmonary embolism type: multiple subsegmental (without acute cor pulmonale) Qualified Code(s): I26.94 - Multiple subsegmental pulmonary emboli without acute cor pulmonale 1. This is a 70-year-old male who developed left lower extremity DVT in October 2019 postoperatively after right hip replacement. Following this he received only 1 month of anticoagulation. He then received an IVC filter preoperatively on 03/18/2020 and underwent left hip replacement on 03/26/2020. He did not receive anticoagulation between end of November 2019 to end of February 2020. All of his care was managed by his orthopod in [facility]. He did not receive postoperative DVT prophylaxis in August. He was started on warfarin after his 2nd hip surgery few days back, not yet achieved therapeutic INR. He is now diagnosed with left segmental pulmonary emboli, etiology of which is DVT which was inadequately treated previously and recent hip surgery. I recommend repeat Doppler ultrasound of both lower extremities. He should receive anticoagulation for a minimum of 3-6 months. There does not seem to be any family history of thromboembolism. I thank you for this consultation.
--- NOTE | 2020-03-31 16:32 | PC.NURSE ---
Pt up to bathroom, ambulating with steady gait using walker. daily care performed independently, linen changed. Pt denies further needs or complaints. Up in recliner. currently pending PTT results and room assignment
--- NOTE | 2020-03-31 16:50 | PC.NURSE ---
[id number] dr sevilla called [facility] verbal order to hold heparin. he'll come see patient and likely discharge him home.
[2020-03-31 16:54] LABS: PTT Heparin Drip 44.4 SEC (53-77.9)
--- NOTE | 2020-03-31 17:23 | PM.DS ---
DS: Providers Provider Date of Service: 06/27/20 Date of admission: 03/31/20 01:14 Primary care physician: Emerson Wasserman MD Consults: 03/31/20 02:03 Consult to Cardiology Routine Consulting Provider: Avila Lim Reason for consultation: Indeterminate trops; p/w PE Has provider been notified: No Consult to Hematology / Oncology Routine Consulting Provider: Tiffani Carnes Reason for consultation: Rec DVT; now PE Has provider been notified: No DS: Diagnosis Discharge Diagnosis (1) Pulmonary embolism: Status: Acute DS: Medications Discharge Medications Home Medications: Home Medications Medication Instructions Recorded Confirmed celecoxib 1 cap PO DAILY 03/31/20 03/31/20 hydromorphone PO PRN 03/31/20 olmesartan 1 tab PO DAILY 03/31/20 03/31/20 simvastatin 1 tab PO DAILY 03/31/20 03/31/20 tamsulosin 1 cap PO DAILY 03/31/20 03/31/20 tramadol 1 tab PO DAILY 03/31/20 03/31/20 trazodone 1 tab PO BEDTIME 03/31/20 03/31/20 Previous Rx's Medication Instructions Recorded rivaroxaban [Xarelto] 15 mg PO BID #41 tab 03/31/20 rivaroxaban [Xarelto] 20 mg PO DAILY #30 tab 03/31/20 DS: Summary Hospital Course Hospital Course: HPI: 70 year old male who presented with shortness of breath on 03/31/2020. He underwent CT angiogram which revealed emboli within branches of left pulmonary artery. Patient was initially diagnosed with left lower extremity DVT in October 2019. He had undergone right hip replacement in August 2019 and was scheduled for left hip replacement in October. He did not receive any prophylactic anticoagulation after surgery in August and therefore he had screening Doppler of both lower extremities and was diagnosed with left DVT. He was started given Eliquis for 1 month only. He was supposed to get an IVC filter and that was delayed until March 18. He was without anticoagulation all of December, January and part of February. He underwent left hip replacement on 03/27/2020 and was started on warfarin. His INR was 1 2 days ago and his dose was increased from 3 mg to 4 mg. He reports left leg swelling since the surgery. 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 He denies any prior history of thrombosis, no family history of thromboembolism. He is up-to-date with screening colonoscopy. He was a smoker, he recently quit. Hospital course: patient was admitted and started on heparin drip, was seen by cardiology and echo done showing no RV strain or pulmonary HTN. He was seen by Dr. Carnes from hematology and recommend anticoagulation for no less than 6 months. He is switched from heparin to Xarelto 15 mg twice a day for 21 days, then 20 mg daily there after Time Spent with Patient Time attestation: Total time spent providing and/or coordinating discharge services: Discharge coordination time: Greater than 30 minutes Physical Exam Vital Signs: Vital Signs: Last Vital Signs Temp 98.2 F 03/31/20 16:42 Pulse 62 03/31/20 16:42 Resp 14 03/31/20 16:42 BP 116/56 L 03/31/20 16:42 Pulse Ox 100 03/31/20 16:42 Body Mass Index 29.1 Constitutional Awake and Alert, No apparent distress Neck Supple, No lymphadenopathy Cardiovascular RRR, No M/R/G, S1 S2, No S3 S4, No pedal edema Respiratory Lungs clear, No respiratory distress Gastrointestinal Non tender, Non-distended Skin No rash swelling of left leg since surgery Neurological Alert & oriented x3 Psychological Appropriate affect DS: Data Data Completed and Pending Labs on day of discharge: Laboratory Tests 03/30/20 03/30/20 03/30/20 22:31 22:33 22:42 WBC 7.0 RBC 3.24 L Hgb 10.2 L Hct 30.3 L MCV 93.5 MCH 31.5 MCHC 33.7 RDW 12.9 Plt Count 194 MPV 9.3 L Immature Gran % (Auto) 0.3 Neut % (Auto) 55.4 Lymph % (Auto) 27.5 [place] % (Auto) 10.5 Eos % (Auto) 6.0 H Baso % (Auto) 0.3 Lymph # (Auto) 1.9 [place] # (Auto) 0.7 Eos # (Auto) 0.4 Baso # (Auto) 0.0 Abs Immat Gran (auto) 0.02 Absolute Neuts (auto) 3.9 Absolute Nucleated RBC 0.000 Nucleated RBC % (auto) 0.0 PT INR APTT PTT (Heparin Protocol) D-Dimer Sodium Potassium Chloride Carbon Dioxide Anion Gap BUN Creatinine Estim Creat Clear Calc Estimated GFR Random Glucose Calcium Magnesium Total Bilirubin Direct Bilirubin AST ALT Alkaline Phosphatase Troponin I High Sens B-Natriuretic Peptide Total Protein Albumin Urine Color YELLOW Urine Appearance CLEAR Urine pH 6.5 Ur Specific [place] <= 1.005 Urine Protein NEG Urine Glucose (UA) NEG Urine Ketones NEG Urine Blood 3+ H Urine Nitrite NEG Ur Leukocyte Esterase TRACE H Urine RBC 5-9 H Urine WBC 0-2 Ur Squamous Epith Cells 1+ Urine Bacteria 1+ Coronavirus (PCR) NEGATIVE Influenza Type A (PCR) NEGATIVE Influenza Type B (PCR) NEGATIVE RSV RNA Qual (PCR) NEGATIVE 03/30/20 03/30/20 03/30/20 22:42 22:42 22:42 WBC RBC Hgb Hct MCV MCH MCHC RDW Plt Count MPV Immature Gran % (Auto) Neut % (Auto) Lymph % (Auto) [place] % (Auto) Eos % (Auto) Baso % (Auto) Lymph # (Auto) [place] # (Auto) Eos # (Auto) Baso # (Auto) Abs Immat Gran (auto) Absolute Neuts (auto) Absolute Nucleated RBC Nucleated RBC % (auto) PT 12.6 INR 1.1 APTT 30.5 PTT (Heparin Protocol) D-Dimer 955 Sodium 137 Potassium 4.0 Chloride 103 Carbon Dioxide 27 Anion Gap 11 L BUN 18 H Creatinine 0.83 Estim Creat Clear Calc 125.5 Estimated GFR > 60 Random Glucose 102 Calcium 8.0 L Magnesium 2.1 Total Bilirubin 1.0 Direct Bilirubin 0.4 AST 21 ALT 10 Alkaline Phosphatase 48 Troponin I High Sens 10.5 B-Natriuretic Peptide 24 Total Protein 6.4 L Albumin 3.6 Urine Color Urine Appearance Urine pH Ur Specific [place] Urine Protein Urine Glucose (UA) Urine Ketones Urine Blood Urine Nitrite Ur Leukocyte Esterase Urine RBC Urine WBC Ur Squamous Epith Cells Urine Bacteria Coronavirus (PCR) Influenza Type A (PCR) Influenza Type B (PCR) RSV RNA Qual (PCR) 03/31/20 03/31/20 03/31/20 01:57 09:11 16:31 WBC RBC Hgb Hct MCV MCH MCHC RDW Plt Count MPV Immature Gran % (Auto) Neut % (Auto) Lymph % (Auto) [place] % (Auto) Eos % (Auto) Baso % (Auto) Lymph # (Auto) [place] # (Auto) Eos # (Auto) Baso # (Auto) Abs Immat Gran (auto) Absolute Neuts (auto) Absolute Nucleated RBC Nucleated RBC % (auto) PT INR APTT PTT (Heparin Protocol) 46.0 L 44.4 L D-Dimer Sodium Potassium Chloride Carbon Dioxide Anion Gap BUN Creatinine Estim Creat Clear Calc Estimated GFR Random Glucose Calcium Magnesium Total Bilirubin Direct Bilirubin AST ALT Alkaline Phosphatase Troponin I High Sens 12.1 B-Natriuretic Peptide Total Protein Albumin Urine Color Urine Appearance Urine pH Ur Specific [place] Urine Protein Urine Glucose (UA) Urine Ketones Urine Blood Urine Nitrite Ur Leukocyte Esterase Urine RBC Urine WBC Ur Squamous Epith Cells Urine Bacteria Coronavirus (PCR) Influenza Type A (PCR) Influenza Type B (PCR) RSV RNA Qual (PCR) Preliminary micro results at discharge 03/30/20 22:53 Urine Culture - Preliminary Urine [place] No growth to date. Discharge Plan Discharge Anticipated Discharge Date/Time: 03/31/20 16:28 Patient Disposition: Home Health Service Discharge Diagnosis: PE Referrals: Emerson Wasserman MD [Primary Care Provider] - Discharge Medications: New Xarelto 15 mg tablet 15 mg PO BID Qty: 41 RF: 0 Xarelto 20 mg tablet 20 mg PO DAILY Qty: 30 RF: 4 Continued celecoxib 200 mg capsule 1 cap PO DAILY RF: 0 trazodone 50 mg tablet 1 tab PO BEDTIME RF: 0 tramadol 50 mg tablet 1 tab PO DAILY RF: 0 hydromorphone 2 mg tablet PO PRN (Reason: Pain) RF: 0 tamsulosin 0.4 mg capsule 1 cap PO DAILY RF: 0 simvastatin 20 mg tablet 1 tab PO DAILY RF: 0 olmesartan 20 mg tablet 1 tab PO DAILY RF: 0 Discontinued warfarin 1 mg tablet PO RF: 0 enoxaparin 40 mg/0.4 mL syringe 40 mg subcut RF: 0 Discharge Orders: Discharge Order (Routine); Ordered 03/31/20 Ordered By: Walter Martines Diet: advance to usual diet Activity on Discharge: As tolerated Stand Alone Forms: Patient Portal Discharge page Visit Report Forms: Patient Portal Discharge page Care Plan Goals: Prevent further blood clot Health Concerns: recurrent blood clots Plan of Treatment: Take Xarelto as recommended and follow up with your Doctor in a week Xarelto take 15 mg twice daily for 21 days, then Xarelto 20 mg daily thereafter for period no less than 6 months. Assessment: see above Discharge Date/Time: 03/31/20 22:27
[2020-03-31] MEDS: Rivaroxaban 15 MG TABLET PO (18:25)
[2020-03-31] MEDS: Tamsulosin HCL 0.4 MG CAPSULE PO (18:30)
--- NOTE | 2020-03-31 20:12 | PC.NURSE ---
Nursing policy change clerks supervisor called for discharge paperwork. Pending dispo.
--- NOTE | 2020-03-31 20:14 | P.F2F_ITS ---
Service Date Service Date: 03/31/20 Encounter Date of encounter: 03/31/20 Encounter: Left hip one week ago. [facility]. Reasons for Services Reason for mcfp: wound care, postoperative assessment and/or care, medication management, medication treatment and teach disease management Reason for physical therapy: home safety and mobility, therapeutic exercises, restore joint function, gait/transfer training and ADL training Homebound: Leaving the home is medically contraindicated at this time without the asist of a device and/or another person due th the listed conditions above and below. Reason homebound: unsteady gait / fall risk Homebound supporting statement: Recent Hip surgery Certification: Based on the above findings, I certify that this patient is confined to the home and needs intermittent mcfp care, physical therapy and/or speech therapy, or continues to need occupational therapy. The patient is under my care, and I have initiated the establishment of the plan of care. The patient will be followed by a physician who will periodically review the plan of care.
--- NOTE | 2020-03-31 20:35 | MHC.CM.PN ---
CM met with patient. A&Ox3. Pt. to be d/c tonight. Pt tells CM he had hip replacement surgery(L) 1 week ago at [facility]. Uses a walker and cane. 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 F2F uploaded. PCP Emerson Wasserman. HCP is , Aimee Cartagena ([phone]). Copy at home. IMM reviewed and signed per protocol. Son to provide transportation home. CM to follow for d/c needs
--- NOTE | 2020-03-31 21:42 | MHC.CM.PN ---
CM spoke with /HCP, Aimee , who verified that [facility] is the A service that is providing services to her . Referral sent through [facility]. Clinicals sent, including F2F. Per Dr. Adrian, scripts sent to [facility]. RN spoke with patient to call ED if any problems with prescriptions.
--- NOTE | 2020-03-31 22:24 | PC.NURSE ---
Per Dr. Martines ok to discharge pt prior to him signing d/c paperwork, per sent RX for Xeralto to [facility] in [place].
== END 2020-03-31 22:27 | disposition home health service (06) | DRG 176 ==
LOC: HO.ED 03-31 00:50 → HO.EDOVER 03-31 01:25
PROVIDERS: Emergency Medicine; Physician Assistant; Admitting Provider Hospitalist; Emergency Provider Student in an Organized Health Care Education/Training Program; PCP Internal Medicine; Visit Provider Internal Medicine
DX: I26.94 Multiple subsegmental thrombotic pulmonary emboli without acute cor pulmonale (principal); E78.5 Hyperlipidemia, unspecified; I10 Essential (primary) hypertension; Z96.643 Presence of artificial hip joint, bilateral; Z87.891 Personal history of nicotine dependence; Z20.822 Contact with and (suspected) exposure to COVID-19; Z86.718 Personal history of other venous thrombosis and embolism; Z79.1 Long term (current) use of non-steroidal anti-inflammatories (NSAID); Z79.01 Long term (current) use of anticoagulants; Z79.891 Long term (current) use of opiate analgesic; Z79.899 Other long term (current) drug therapy
CPT/HCPCS: 0241U; 36415; 71045; 71275; 80048; 80076; 81001; 81003; 83735; 83880; 84484; 85025; 85379; 85610; 85730; 87086; 93005; 93306; 93970; 96374; 99284; 99285; Q9957; Q9967